=== PATIENT | female | born 1960 | race Caucasian/White ===

== ENCOUNTER 2021-12-11 14:44 | Observation (INO) ==
[2021-12-11 16:03] LABS: Basophils # (auto) 0.08 K/uL (0-0.2); Basophils % (auto) 0.7 %; Eosinophils # (auto) 0.36 K/uL (0-0.50); Eosinophils % (auto) 3.2 %; Hematocrit (blood only) 34.5 % (34.1-44.9); Hemoglobin 10.8 g/dl (12.0-16.0); Immature Granulocytes # (auto) 0.04 K/uL (0.00-0.02); Immature Granulocytes % (auto) 0.4 %; Lymphocytes # (auto) 2.72 K/uL (1.2-3.4); Mean Corpuscular Hemoglobin 27.7 pg (25.0-34.0); Mean Corpuscular Hgb Conc 31.3 g/dL (32.0-36.0); Mean Corpuscular Volume 88.5 fL (80.0-100.0); Mean Platelet Volume 10.7 fL (9.4-12.3); Monocytes # (auto) 0.78 K/uL (0.24-0.82); Monocytes % (auto) 6.9 %; Neutrophils # (auto) 7.33 K/uL (1.4-6.5); Neutrophils % (auto) 64.8 %; Platelet Count 198 K/uL (130-400); RDW Coefficient of Variation 13.8 % (11.5-14.5); RDW Standard Deviation 44.5 fL (36.4-46.3); White Blood Count 11.31 K/ul (4.8-10.8)
[2021-12-11 16:25] LABS: Albumin Globulin Ratio 1.3 (0.9-2); Albumin Level 3.5 gm/dl (3.4-5.0); BUN Creatinine Ratio 12.8 (10-20); Bilirubin,Total 0.3 mg/dl (0.2-1.0); Calcium 8.7 mg/dl (8.5-10.1); Creatinine Clr Calc Pharmacy 59.4 ml/min; Est GFR (African American) 75.9 ml/min; Est GFR (Non-African American) 65.5 ml/min; Globulin 2.7 gm/dl (2.5-4.0); Potassium 3.5 mmol/L (3.5-5.1); Total Protein 6.2 gm/dl (6.0-8.3)
--- NOTE | 2021-12-11 20:39 | Emergency Department Note ---
History of Present Illness General Chief complaint: Lethargic Stated complaint: lethargic Time Seen by Provider: 12/11/21 16:57 History of Present Illness Provider complaint: Postoperative bleeding Onset (ago): day(s) 1 Location: lower extremity and right Radiation: non-radiation Severity: mild Relieved By: + none Exacerbated By: + none Associated symptoms: no chest pain, no cough, no fever/chills, no headaches, no nausea/vomiting or no shortness of breath 61-year-old female presents emergency department for postoperative bleeding. Patient reports she had a skin graft done by Dr. Figueroa earlier today. She states when she got home she started noticing that the blood was going through her bandages so she came back to the emergency department.Patient reports feeling weak. No chest pain or difficulty breathing. Home Medications Medication Instructions Recorded Confirmed Type albuterol sulfate 90 mcg/actuation 2 puff inhalation 6XD PRN Wheezing 01/18/20 12/11/21 History aerosol inhaler betamethasone dipropionate 0.05 % 1 applic topical BID PRN right 01/18/20 12/11/21 History lotion hand, right foot rash gabapentin 100 mg capsule 200 mg PO TID 01/18/20 12/11/21 History glimepiride 1 mg tablet 0.5 mg PO QPM 01/18/20 12/11/21 History lisinopril 10 mg tablet 10 mg PO QAM 01/18/20 12/11/21 History sitagliptin 100 mg tablet (Januvia) 100 mg PO QAM 01/18/20 12/11/21 History atorvastatin 40 mg tablet 40 mg PO HS 06/06/20 12/11/21 History calcium carbonate 300 mg (750 mg) 300 mg PO BID PRN Heartburn 11/26/21 12/11/21 History chewable tablet (Tums) clopidogrel 75 mg tablet (Plavix) 75 mg PO QAM 11/26/21 12/11/21 History aspirin 81 mg chewable tablet 81 mg PO DAILY 12/11/21 12/11/21 History oxycodone-acetaminophen 5 mg-325 1 tab PO Q6H PRN pain #30 tabs 12/11/21 12/11/21 Rx mg tablet (Percocet) Allergies Allergy/AdvReac Type Severity Reaction Status Date / Time pineapple Allergy Intermediate purple Verified 12/11/21 09:12 spots on face Penicillins Allergy Unknown FEVER, Verified 12/11/21 09:12 ?- A CHILD Past Med/Surg History Medical History Bronchitis DUE TO ALLERGIES-INHALER USE INFREQUENTLY Carotid stenosis High-grade stenosis at the origin of the left external carotid artery. 50% stenosis right ICA, less than 50% stenosis left ICA. Diabetes mellitus, type 2 NIDDM Foot drop, right Heartburn tums prn Hyperlipidemia Hypertension Left lumbar radiculopathy On anticoagulant therapy Open wound right leg wound (superficial) being treated with home care nursing. no longer has wound vac was removed 11/11/21. Peripheral neuropathy Peripheral vascular disease s/p right femoral to above knee popliteal artery bypass, four compartment fasciotomies Right renal mass (06/07/13) benign (reason for nephrectomy) Sciatica LOWER BACK PAIN Surgical History H/O hand surgery X 3-RIGHT History of back surgery L4-L5-S1 (no hardware) History of colonoscopy History of intravascular stent placement x3 in the right femoral artery with Dr Figueroa at [facility] (all 3 have since been removed) History of nephrectomy, right History of strabismus surgery left eye as a child S/P epidural steroid injection S/P femoral-popliteal bypass surgery [place] [facility] [place], 4 compartment fasciotomy Family History Other No family history of adverse response to anesthesia Social History Smoking Status: Never smoker Cigarettes Per Day: 10 CIGS A DAY; Second Hand Exposure: Yes; Hx Alcohol Use: No Hx Substance Use: No Preferred Language: St Helen[place] Communication Ability: Effective Operations Vocational Instructor Required: No Beliefs That Will Affect Care: None Current Living Situation: Alone Feels Safe at Home: Yes Assistive Devices: Cane and Glasses Review of Systems A total of 10 systems reviewed and were otherwise negative Physical Exam Vital Signs Vital Signs - 24 hr 12/11/21 14:30 12/11/21 14:53 12/11/21 15:50 Temperature 36.6 C Temperature Source Oral Pulse Rate 71 Pulse Rate [Apical] 66 68 Pulse Rhythm [Apical] Regular Regular Pulse Strength [Apical] Normal Respiratory Rate 16 16 16 Respiratory Effort / Characteristics Non-Labored Spontaneous Non-Labored Spontaneous Respiratory Depth Normal Normal Respiratory Pattern Regular Blood Pressure 145/75 H Blood Pressure [Right Arm] 149/77 H 142/77 H Blood Pressure Mean 98 Blood Pressure Mean [Right Arm] 101 98 Blood Pressure Position [Right Arm] Lying Pulse Oximetry 98 97 97 Oxygen Delivery Method Room Air Sepsis Recent Fever Within 48 Hours No Sepsis New/Unexplained Change in Mental Status N/A Sepsis Action Taken by Nursing No Action Required 12/11/21 17:00 12/11/21 18:06 12/11/21 18:43 Temperature Temperature Source Pulse Rate Pulse Rate [Apical] 77 71 74 Pulse Rhythm [Apical] Regular Regular Pulse Strength [Apical] Normal Normal Respiratory Rate 20 18 16 Respiratory Effort / Characteristics Non-Labored Spontaneous Non-Labored Spontaneous Respiratory Depth Normal Normal Respiratory Pattern Blood Pressure Blood Pressure [Right Arm] 163/78 H 138/73 135/75 Blood Pressure Mean Blood Pressure Mean [Right Arm] 106 94 95 Blood Pressure Position [Right Arm] Pulse Oximetry 97 97 98 Oxygen Delivery Method Room Air Room Air Sepsis Recent Fever Within 48 Hours Sepsis New/Unexplained Change in Mental Status Sepsis Action Taken by Nursing 12/11/21 20:17 Temperature Temperature Source Pulse Rate Pulse Rate [Apical] 80 Pulse Rhythm [Apical] Pulse Strength [Apical] Respiratory Rate 18 Respiratory Effort / Characteristics Respiratory Depth Respiratory Pattern Blood Pressure Blood Pressure [Right Arm] 166/84 H Blood Pressure Mean Blood Pressure Mean [Right Arm] 111 Blood Pressure Position [Right Arm] Pulse Oximetry 97 Oxygen Delivery Method Room Air Sepsis Recent Fever Within 48 Hours Sepsis New/Unexplained Change in Mental Status Sepsis Action Taken by Nursing Physical Exam HENT: Exam performed. -Head: Normocephalic and atraumatic. -Right Ear: External ear normal. No mastoid tenderness. -Left Ear: External ear normal. No mastoid tenderness. -Mouth/Throat: The oropharynx is clear and moist. No trismus in the jaw. No dental abscesses or uvula swelling. No oropharyngeal exudate or tonsillar abscesses. EYES: Conjunctivae and EOM are normal. Pupils are equal, round, and reactive to light. Right eye exhibits no discharge. Left eye exhibits no discharge. No scleral icterus. NECK: Normal range of motion. Neck supple. No JVD present. No spinous process tenderness present. No carotid bruit present. No rigidity. No tracheal deviation and normal range of motion present. No Brudzinski's sign and no Kernig's sign noted. CV: Normal rate, regular rhythm, normal heart sounds and intact distal pulses. There is no peripheral edema. Palpable radial pulses bue. PULM/CHEST: Effort normal and breath sounds normal. No respiratory distress. No stridor. She has no wheezes. She has no rales. -Chest Wall: She exhibits no tenderness. ABD: The abdomen is soft. Bowel sounds are normal. She has no distension. No mass is present. There is no tenderness. There is no rebound, no guarding, no Deutsch's sign and no tenderness at McBurney's point. Rovsig negative MUSC/SKEL: Palpable DP pulses bilateral lower extremities. NEURO: She is alert and oriented to person, place, and time. She has normal strength. No cranial nerve deficit or sensory deficit. Coordination and gait normal. GCS eye subscore is 4. GCS verbal subscore is 5. GCS motor subscore is 6. Cerebellar tests wnl. SKIN: Bandaged right upper thigh surgical wound. Bandage was removed and there is venous oozing from the wound. No arterial bleeding. Course Course 1657: The patient was evaluated in room B5. A complete history and physical exam was performed Medical Decision Making Laboratory Data Result diagrams: 12/11/21 15:00 12/11/21 15:00 Lab Results 12/11/21 12/11/21 12/11/21 Range/Units 14:50 15:00 15:00 WBC 11.31 H (4.8-10.8) K/ul RBC 3.90 L (3.93-5.22) M/uL Hgb 10.8 L (12.0-16.0) g/dl Hct 34.5 (34.1-44.9) % MCV 88.5 (80.0-100.0) fL MCH 27.7 (25.0-34.0) pg MCHC 31.3 L (32.0-36.0) g/dL RDW Std Deviation 44.5 (36.4-46.3) fL RDW Coeff of Jesus Manuel 13.8 (11.5-14.5) % Plt Count 198 (130-400) K/uL MPV 10.7 (9.4-12.3) fL Immature Gran % (Auto) 0.4 % Neut % (Auto) 64.8 % Lymph % (Auto) 24.0 % [place] % (Auto) 6.9 % Eos % (Auto) 3.2 % Baso % (Auto) 0.7 % Neut # (Auto) 7.33 H (1.4-6.5) K/uL Lymph # (Auto) 2.72 (1.2-3.4) K/uL [place] # (Auto) 0.78 (0.24-0.82) K/uL Eos # (Auto) 0.36 (0-0.50) K/uL Baso # (Auto) 0.08 (0-0.2) K/uL Immature Gran # (Auto) 0.04 H (0.00-0.02) K/uL Sodium 137 (136-145) mmol/L Potassium 3.5 (3.5-5.1) mmol/L Chloride 103 (98-107) mmol/L Carbon Dioxide 28 (21-32) mmol/L Anion Gap 6 (3-11) BUN 12 (6-23) mg/dl Creatinine 0.94 (0.6-1.2) mg/dl Est Cr Clr Drug Dosing 59.4 ml/min Est GFR ( Amer) 75.9 ml/min Est GFR (Non-Af Amer) 65.5 ml/min BUN/Creatinine Ratio 12.8 (10-20) Glucose 140 H (70-99(Fasting)) mg/dl POC Glucose 142 H (70-99) mg/dl Calcium 8.7 (8.5-10.1) mg/dl Total Bilirubin 0.3 (0.2-1.0) mg/dl AST 15 (13-39) U/L ALT 15 (7-52) U/L Alkaline Phosphatase 81 (34-104) U/L Total Protein 6.2 (6.0-8.3) gm/dl Albumin 3.5 (3.4-5.0) gm/dl Globulin 2.7 (2.5-4.0) gm/dl Albumin/Globulin Ratio 1.3 (0.9-2) MDM Narrative Cardiac monitoring: An order was placed for continuous cardiac monitoring. The monitor shows a rate of 80 with sinus rhythm Quick clot gauze was applied over the patient's surgical wound and ABD as well a s Davis bandage was loosely placed over the area. After some time the Davis bandage and ABD were removed and there was no bleeding through the wound. The quick clot was slightly peeled back and then when the peeling off of the skin cause some mild venous pooling around the edges of the surgical wound however it is very minimal and thought to be due to the removing of the bandage that is causing the bleeding. Quick clot was quickly replaced with a new quick clot and it stopped the bleeding again. ABD and Davis bandage were applied. Patient's hemoglobin shows 10.8. Discussed case with Dr. Figueroa the patient surgeon and he states the patient be discharged with quick clot dressings and follow-up for appointment this week. Patient states she will call her brother to come pick her up. At the time of discharge the patient states she did not feel comfortable going home because she has many stairs in her house and is afraid she is cancer bleeding and feels too weak. The patient was offered evaluation for rehab at [facility] and states she would prefer to go there. Case management met with the patient are stating that the patient needs to be admitted overnight for PT OT eval and then can be placed there. Patient states she is agreeable to this. Discussed with Dr. Gordon will evaluate the patient. Impression & Plan Post-op bleeding Discharge Plan Visit Data Chief Complaint: Lethargic Stated Complaint: lethargic ED Provider: Jean Marie Sands Discharge Problem: Post-op bleeding Patient Disposition: Being Evaluated by Hospitalist Forms Stand Alone Forms: [facility], Virtual Emergency Department, Important Visit Information Prescriptions Prescriptions: No Action glimepiride 1 mg Tablet 0.5 mg PO QPM lisinopril 10 mg Tablet 10 mg PO QAM gabapentin 100 mg Capsule 200 mg PO TID albuterol sulfate 90 mcg/actuation Hfa Aerosol Inhaler 2 puff INHALATION 6XD PRN (Reason: Wheezing) betamethasone dipropionate 0.05 % Lotion 1 applic TOPICAL BID PRN (Reason: right hand, right foot rash) Januvia 100 mg Tablet 100 mg PO QAM atorvastatin 40 mg Tablet 40 mg PO HS clopidogrel [Plavix] 75 mg tablet 75 mg PO QAM calcium carbonate [Tums] 300 mg (750 mg) Tablet,Chewable 300 mg PO BID PRN (Reason: Heartburn) aspirin 81 mg Tablet,Chewable 81 mg PO DAILY oxycodone-acetaminophen [Percocet] 5-325 mg tablet 1 tab PO Q6H PRN (Reason: pain) Qty: 30 0RF Referrals Referrals: Etienne Sharma MD [Primary Care Provider] - Anselmo Figueroa MD [Physician] - (Call for appointment on Tuesday or )
--- NOTE | 2021-12-11 21:17 | History & Physical Report ---
Date of Service December 11, 2021 Assessment & Plan (1) Post-op bleeding: Plan: 61yo female with history of HTN, HLP, DM and PVD s/p skin grafting performed in clinic by Dr. Figueroa today. Patient presents with post-operative bleeding, concern regarding going home alone. She is afebrile, HD stable. Hgb=10.8. Wound visualized by ER staff - venous bleeding with some pooling. Resolved with placement of quick clot dressing x 2, ABD and Davis bandage. -Observation to medical -Monitor wound -Repeat CBC in AM -Vascular consultation appreciated -PT/OT evaluation appreciated (2) Hypertension: Plan: Chronic. Stable. Blood pressure presently 144/74 -Continue Lisinopril 10mg po qAM -Continue to monitor BP (3) Hyperlipidemia: Plan: Chronic. Stable -Continue Atorvastatin (4) Diabetes mellitus, type 2: Plan: Chronic. -Check HgbA1C -Lantus 5u BID -ISS (5) Peripheral vascular disease: Plan: Chronic. s/p skin grafting performed today -Continue ASA and Plavix -Continue Atorvastatin History of Present Illness Chief Complaint: post-operative bleeding, lethargy Primary Care Provider: MD Sierra Antonyrj East is 61yo female with history of DM, HTN, HLP and peripheral vascular disease. She has a left SFA stent. She was seen at [facility] [place] on [place]/02/21 with a cold right leg and had a right BARRER [place] TACKER to [place] pop bypass performed as well as 4 compartment fasciotomy. Medial compartment was closed 10/04/21 and the lateral compartment was managed with a wound vac. Her wound vac was removed last week and she has been dressing the wound at home. She had skin grafting of the lateral fasciotomy site performed by Dr. Figueroa in clinic today. The surgery was well tolerated with no complications identified. Patient was in the car at [facility] getting her prescriptions filled when she noted some increased bleeding at the graft site. Her son helped her hold pressure. They note that the bleeding soaked through the dressings and the DAVIS bandage. Patient reports she began to "feel funny" and weak like she was going to pass out. She denies chest pain, palpitations, cough, SOB or syncope. In the ER she is afebrile, HD stable. Wound was visualized by ER attending - venous bleeding present. The wound was dressed with quick clot gauze, an ABD and davis bandage. The quick clot was exchanged x 1. Bleeding controlled. Case discussed with Dr. Figueroa Patient feels very anxious about going home. She lives alone on the third floor. She is concerned about getting up the steps as well as if she starts bleeding again and feels faint. Allergies Allergy/AdvReac Type Severity Reaction Status Date / Time pineapple Allergy Intermediate purple Verified 12/11/21 09:12 spots on face Penicillins Allergy Unknown FEVER, Verified 12/11/21 09:12 ?- A CHILD Home Medications Medication Instructions Recorded Confirmed Type albuterol sulfate 90 mcg/actuation 2 puff inhalation 6XD PRN Wheezing 01/18/20 12/11/21 History aerosol inhaler betamethasone dipropionate 0.05 % 1 applic topical BID PRN right 01/18/20 12/11/21 History lotion hand, right foot rash gabapentin 100 mg capsule 200 mg PO TID 01/18/20 12/11/21 History glimepiride 1 mg tablet 0.5 mg PO QPM 01/18/20 12/11/21 History lisinopril 10 mg tablet 10 mg PO QAM 01/18/20 12/11/21 History sitagliptin 100 mg tablet (Januvia) 100 mg PO QAM 01/18/20 12/11/21 History atorvastatin 40 mg tablet 40 mg PO HS 06/06/20 12/11/21 History calcium carbonate 300 mg (750 mg) 300 mg PO BID PRN Heartburn 11/26/21 12/11/21 History chewable tablet (Tums) clopidogrel 75 mg tablet (Plavix) 75 mg PO QAM 11/26/21 12/11/21 History aspirin 81 mg chewable tablet 81 mg PO DAILY 12/11/21 12/11/21 History oxycodone-acetaminophen 5 mg-325 1 tab PO Q6H PRN pain #30 tabs 12/11/21 12/11/21 Rx mg tablet (Percocet) Past Med/Surg History Medical History (Updated 12/11/21 @ 22:51 by Shanda Gordon DO) Bronchitis DUE TO ALLERGIES-INHALER USE INFREQUENTLY Carotid stenosis High-grade stenosis at the origin of the left external carotid artery. 50% stenosis right ICA, less than 50% stenosis left ICA. Diabetes mellitus, type 2 NIDDM Foot drop, right Heartburn tums prn Hyperlipidemia Hypertension Left lumbar radiculopathy On anticoagulant therapy Open wound right leg wound (superficial) being treated with home care nursing. no longer has wound vac was removed 11/11/21. Peripheral neuropathy Peripheral vascular disease s/p right femoral to above knee popliteal artery bypass, four compartment fasciotomies Right renal mass (06/07/13) benign (reason for nephrectomy) Sciatica LOWER BACK PAIN Surgical History H/O hand surgery X 3-RIGHT History of back surgery L4-L5-S1 (no hardware) History of colonoscopy History of intravascular stent placement x3 in the right femoral artery with Dr Figueroa at [facility] (all 3 have since been removed) History of nephrectomy, right History of strabismus surgery left eye as a child S/P epidural steroid injection S/P femoral-popliteal bypass surgery an emergency surgery in 10/02/21 at [facility] [place] Right Leg, 4 compartment fasciotomy Family History Other No family history of adverse response to anesthesia Social History Smoking Status: Never smoker Cigarettes Per Day: 10 CIGS A DAY; Second Hand Exposure: Yes; Hx Alcohol Use: No Hx Substance Use: No Preferred Language: Sri Lankan Communication Ability: Effective Sales Consulting Director Required: No Beliefs That Will Affect Care: None Current Living Situation: Alone Feels Safe at Home: Yes Assistive Devices: Cane and Glasses Review of Systems Review of Systems: All systems reviewed & are unremarkable except as noted in HPI & below Physical Exam Physical Exam: General: patient resting comfortably, NAD, non-toxic in appearance, AA&O x 4 Skin: warm, dry, intact, no rashes or lesions HEENT: NC/AT, PERRL, EOMI, anicteric sclera, conjunctiva without injection, external ear normal to inspection and nontender, nares patent, moist mucus membranes, dentition intact, no oropharyngeal lesions, neck supple, trachea midline, no LAD, no thyromegaly, no JVD Heart: +S1/S2, regular, no m/r/g Lungs: equal air entry bilaterally, no rales/rhonchi/wheezes Abd: +BS, soft, NT/ND, no masses/organomegaly/ascites Ext: warm, 2+ pulses in UE/LE bilaterally, RLE with DAVIS-bandage in place, no bleeding or oozing noted Neuro: nonfocal, patient AA&O x 4, speech intact, no facial droop, moving all extremities on command with equal strength 5/5 Results & Data Results & Data ([facility]) Vital Signs (Past 12 Hours) Vital Signs Temp Pulse Pulse Resp BP BP Pulse Ox 12/11/21 20:17 80 18 166/84 H 97 12/11/21 18:43 74 16 135/75 98 12/11/21 18:06 71 18 138/73 97 12/11/21 17:00 77 20 163/78 H 97 12/11/21 15:50 68 16 142/77 H 97 12/11/21 14:53 36.6 C 66 16 149/77 H 97 12/11/21 14:30 71 16 145/75 H 98 O2 Del Method 12/11/21 20:17 Room Air 12/11/21 18:43 Room Air 12/11/21 18:06 12/11/21 17:00 Room Air 12/11/21 15:50 Room Air 12/11/21 14:53 12/11/21 14:30 Laboratory Results Laboratory Results WBC 11.31 K/ul (4.8-10.8) H 12/11/21 15:00 RBC 3.90 M/uL (3.93-5.22) L 12/11/21 15:00 Hgb 10.8 g/dl (12.0-16.0) L 12/11/21 15:00 Hct 34.5 % (34.1-44.9) 12/11/21 15:00 MCV 88.5 fL (80.0-100.0) 12/11/21 15:00 MCH 27.7 pg (25.0-34.0) 12/11/21 15:00 MCHC 31.3 g/dL (32.0-36.0) L 12/11/21 15:00 RDW Std Deviation 44.5 fL (36.4-46.3) 12/11/21 15:00 RDW Coeff of Jesus Manuel 13.8 % (11.5-14.5) 12/11/21 15:00 Plt Count 198 K/uL (130-400) 12/11/21 15:00 MPV 10.7 fL (9.4-12.3) 12/11/21 15:00 Immature Gran % (Auto) 0.4 % 12/11/21 15:00 Neut % (Auto) 64.8 % 12/11/21 15:00 Lymph % (Auto) 24.0 % 12/11/21 15:00 [place] % (Auto) 6.9 % 12/11/21 15:00 Eos % (Auto) 3.2 % 12/11/21 15:00 Baso % (Auto) 0.7 % 12/11/21 15:00 Neut # (Auto) 7.33 K/uL (1.4-6.5) H 12/11/21 15:00 Lymph # (Auto) 2.72 K/uL (1.2-3.4) 12/11/21 15:00 [place] # (Auto) 0.78 K/uL (0.24-0.82) 12/11/21 15:00 Eos # (Auto) 0.36 K/uL (0-0.50) 12/11/21 15:00 Baso # (Auto) 0.08 K/uL (0-0.2) 12/11/21 15:00 Immature Gran # (Auto) 0.04 K/uL (0.00-0.02) H 12/11/21 15:00 Sodium 137 mmol/L (136-145) 12/11/21 15:00 Potassium 3.5 mmol/L (3.5-5.1) 12/11/21 15:00 Chloride 103 mmol/L (98-107) 12/11/21 15:00 Carbon Dioxide 28 mmol/L (21-32) 12/11/21 15:00 Anion Gap 6 (3-11) 12/11/21 15:00 BUN 12 mg/dl (6-23) 12/11/21 15:00 Creatinine 0.94 mg/dl (0.6-1.2) 12/11/21 15:00 Est Cr Clr Drug Dosing 59.4 ml/min 12/11/21 15:00 Est GFR ( Amer) 75.9 ml/min 12/11/21 15:00 Est GFR (Non-Af Amer) 65.5 ml/min 12/11/21 15:00 BUN/Creatinine Ratio 12.8 (10-20) 12/11/21 15:00 Glucose 140 mg/dl (70-99(Fasting)) H 12/11/21 15:00 POC Glucose 142 mg/dl (70-99) H 12/11/21 14:50 Calcium 8.7 mg/dl (8.5-10.1) 12/11/21 15:00 Total Bilirubin 0.3 mg/dl (0.2-1.0) 12/11/21 15:00 AST 15 U/L (13-39) 12/11/21 15:00 ALT 15 U/L (7-52) 12/11/21 15:00 Alkaline Phosphatase 81 U/L (34-104) 12/11/21 15:00 Total Protein 6.2 gm/dl (6.0-8.3) 12/11/21 15:00 Albumin 3.5 gm/dl (3.4-5.0) 12/11/21 15:00 Globulin 2.7 gm/dl (2.5-4.0) 12/11/21 15:00 Albumin/Globulin Ratio 1.3 (0.9-2) 12/11/21 15:00 SARS-CoV-2, RNA, NAAT NEGATIVE (NEGATIVE) 12/11/21 21:30 Code Status & VTE Plan VTE Prophylaxis Plan VTE Prophylaxis will be ordered: No PG Care Time/CCT Total # of Minutes Spent Total Time Spent with Patient: Total time spent is greater than 50% in coordination of care (as documented) at patient's floor/unit and/or counseling patient: Coding Level of Care Code INT OBSERVATION CARE 70M LVL 3 Diagnoses Post-op bleeding L76.22 Procedure type: non-dermatologic Surgical complication system/body Area: skin Hypertension I10 Hyperlipidemia E78.5 Diabetes mellitus, type 2 E11.9 Peripheral vascular disease I73.9 (1) Post-op bleeding Procedure type: non-dermatologic Surgical complication system/body Area: skin Qualified Code(s): L76.22 - Postprocedural hemorrhage of skin and subcutaneous tissue following other procedure
[2021-12-11] MEDS ORDERED: ONDANSETRON INJ 2 MG/ML 2 ML VIAL IV PRN (23:06)
[2021-12-11] MEDS ORDERED: ALBUTEROL HFA 8 GM INHALER INH PRN (23:06)
[2021-12-11] MEDS ORDERED: GLUCOSE 10 TAB/TUBE PO PRN (23:06)
[2021-12-11] MEDS ORDERED: GLUCOSE 40% GEL 15 GM TUBE PO PRN (23:06)
[2021-12-11] MEDS ORDERED: CARBOHYDRATES FOR HYPOGLYCEMIA PO PRN (23:06)
[2021-12-11] MEDS ORDERED: DEXTROSE 50% 50 ML SYRINGE IV PRN (23:06)
[2021-12-11] MEDS ORDERED: BETAMETHASONE DIPROPIONATE 0.05% TOP PRN (23:06)
[2021-12-11] MEDS ORDERED: GLUCAGON FOR INJ 1 MG VIAL SQ PRN (23:06)
[2021-12-12] MEDS ORDERED: BETAMETHASONE VAL 0.1% CR 15 GM EXT PRN (00:44)
[2021-12-12] MEDS: ACETAMINOPHEN 325 MG TAB PO PRN ×2 (06:13→16:50)
[2021-12-12 06:50] LABS: Hematocrit (blood only) 31.4 % (34.1-44.9); Hemoglobin 9.9 g/dl (12.0-16.0); Mean Corpuscular Hemoglobin 27.4 pg (25.0-34.0); Mean Corpuscular Hgb Conc 31.5 g/dL (32.0-36.0); Mean Platelet Volume 10.3 fL (9.4-12.3); Platelet Count 185 K/uL (130-400); RDW Coefficient of Variation 13.9 % (11.5-14.5); Red Blood Count 3.61 M/uL (3.93-5.22); White Blood Count 9.29 K/ul (4.8-10.8)
[2021-12-12 07:57] LABS: Estimated Average Glucose 120 mg/dl; Hemoglobin A1C 5.8 % (4.5-5.6)
[2021-12-12] MEDS: CLOPIDOGREL BISULFATE 75 MG TAB PO SCH (08:50)
[2021-12-12] MEDS ORDERED: ASPIRIN 81 MG CHEW PO SCH (09:00)
[2021-12-12] MEDS: INSULIN ASPART PER UNIT SC SCH ×4 (09:17→21:00)
[2021-12-12] MEDS: LANTUS PER UNIT CHARGE SQ SCH ×2 (09:17→21:00)
--- NOTE | 2021-12-12 17:38 | Hospitalist Progress Note ---
Date of Service December 12, 2021 Assessment & Plan (1) Post-op bleeding: Plan: 61yo female with history of HTN, HLP, DM and PVD s/p skin grafting performed in clinic by Dr. Figueroa today. Patient presents with post-operative bleeding, concern regarding going home alone. She is afebrile, HD stable. Hgb=10.8. Wound visualized by ER staff - venous bleeding with some pooling. Resolved with placement of quick clot dressing x 2, ABD and Davis bandage. -Observation to medical -Monitor wound -hemoglobin down trending. -will repat in AM. -Vascular consultation appreciated -PT/OT evaluation appreciated (2) Hypertension: Plan: Chronic. Stable. Blood pressure presently 144/74 -Continue Lisinopril 10mg po qAM -Continue to monitor BP (3) Hyperlipidemia: Plan: Chronic. Stable -Continue Atorvastatin (4) Diabetes mellitus, type 2: Plan: Chronic. -Check HgbA1C -Lantus 5u BID -ISS (5) Peripheral vascular disease: Plan: Chronic. s/p skin grafting performed today -Continue ASA and Plavix -Continue Atorvastatin Admission and Anticipated Discharge Date Admission Date: December 11, 2021 Subjective 61 yo female reports feeling well. She no longer has fatigue. Review of Systems Review of Systems: All systems reviewed & are unremarkable except as noted in HPI & below Physical Exam Physical Exam: General: patient resting comfortably, NAD, non-toxic in appearance, AA&O x 4 Skin: warm, dry, intact, no rashes or lesions HEENT: NC/AT, PERRL, EOMI, anicteric sclera, conjunctiva without injection, external ear normal to inspection and nontender, nares patent, moist mucus membranes, dentition intact, no oropharyngeal lesions, neck supple, trachea midline, no LAD, no thyromegaly, no JVD Heart: +S1/S2, regular, no m/r/g Lungs: equal air entry bilaterally, no rales/rhonchi/wheezes Abd: +BS, soft, NT/ND, no masses/organomegaly/ascites Ext: warm, 2+ pulses in UE/LE bilaterally, RLE with DAVIS-bandage in place, no bleeding or oozing noted Neuro: nonfocal, patient AA&O x 4, speech intact, no facial droop, moving all extremities on command with equal strength 5/5 Results & Data Results & Data ([facility]) Vital Signs (Past 12 Hours) Vital Signs Temp Pulse Resp BP Pulse Ox O2 Del Method 12/12/21 14:42 36.8 C 16 146/71 H 98 Room Air 12/12/21 07:01 36.6 C 66 16 135/70 96 Room Air PG Care Time/CCT Total # of Minutes Spent Total Time Spent with Patient: Total time spent is greater than 50% in coordination of care (as documented) at patient's floor/unit and/or counseling patient: Coding Level of Care Code 87343 Subseq Obs Care Lvl 2 Diagnoses Post-op bleeding L76.22 Procedure type: non-dermatologic Surgical complication system/body Area: skin Hypertension I10 Hyperlipidemia E78.5 Diabetes mellitus, type 2 E11.9 Peripheral vascular disease I73.9 Time Spent (min) 25 (1) Post-op bleeding Procedure type: non-dermatologic Surgical complication system/body Area: skin Qualified Code(s): L76.22 - Postprocedural hemorrhage of skin and subcutaneous tissue following other procedure
[2021-12-12 19:20] LABS: Hematocrit (blood only) 31.5 % (34.1-44.9); Hemoglobin 9.8 g/dl (12.0-16.0)
[2021-12-12] MEDS: ATORVASTATIN 40 MG TAB PO SCH (21:01)
[2021-12-13 07:45] LABS: Hematocrit (blood only) 31.1 % (34.1-44.9); Hemoglobin 10.2 g/dl (12.0-16.0); Mean Corpuscular Hemoglobin 27.9 pg (25.0-34.0); Mean Corpuscular Hgb Conc 32.8 g/dL (32.0-36.0); Mean Platelet Volume 10.4 fL (9.4-12.3); Platelet Count 201 K/uL (130-400); RDW Coefficient of Variation 13.8 % (11.5-14.5); RDW Standard Deviation 43.2 fL (36.4-46.3); Red Blood Count 3.66 M/uL (3.93-5.22); White Blood Count 8.91 K/ul (4.8-10.8)
[2021-12-13 08:11] LABS: BUN Creatinine Ratio 18.1 (10-20); Calcium 8.9 mg/dl (8.5-10.1); Creatinine Clr Calc Pharmacy 77.3 ml/min; Est GFR (African American) 104.8 ml/min; Est GFR (Non-African American) 90.4 ml/min; Potassium 3.8 mmol/L (3.5-5.1)
[2021-12-13] MEDS: CLOPIDOGREL BISULFATE 75 MG TAB PO SCH (08:58)
[2021-12-13] MEDS: INSULIN ASPART PER UNIT SC SCH ×4 (09:05→20:30)
[2021-12-13] MEDS: LANTUS PER UNIT CHARGE SQ SCH ×2 (09:06→20:46)
[2021-12-13] MEDS: ACETAMINOPHEN 325 MG TAB PO PRN ×2 (10:04→22:14)
[2021-12-13] MEDS: ATORVASTATIN 40 MG TAB PO SCH (20:46)
--- NOTE | 2021-12-13 22:22 | Hospitalist Progress Note ---
Date of Service December 13, 2021 Assessment & Plan (1) Post-op bleeding: Plan: 61yo female with history of HTN, HLP, DM and PVD s/p skin grafting performed in clinic by Dr. Figueroa today. Patient presents with post-operative bleeding, concern regarding going home alone. She is afebrile, HD stable. Hgb=10.8. Wound visualized by ER staff - venous bleeding with some pooling. Resolved with placement of quick clot dressing x 2, ABD and Davis bandage. -Observation to medical -Monitor wound -hemoglobin down trending. -dressing changed.quick clot pad removed. -Vascular consultation appreciated -PT/OT evaluation appreciated (2) Hypertension: Plan: Chronic. Stable. Blood pressure presently 144/74 -Continue Lisinopril 10mg po qAM -Continue to monitor BP (3) Hyperlipidemia: Plan: Chronic. Stable -Continue Atorvastatin (4) Diabetes mellitus, type 2: Plan: Chronic. -Check HgbA1C -Lantus 5u BID -ISS (5) Peripheral vascular disease: Plan: Chronic. s/p skin grafting performed today -Continue ASA and Plavix -Continue Atorvastatin Admission and Anticipated Discharge Date Admission Date: December 11, 2021 Subjective Patient reports no new symptoms. Patient had BM. Review of Systems Review of Systems: All systems reviewed & are unremarkable except as noted in HPI & below Physical Exam Physical Exam: General: patient resting comfortably, NAD, non-toxic in appearance, AA&O x 4 Skin: warm, dry, intact, no rashes or lesions HEENT: NC/AT, PERRL, EOMI, anicteric sclera, conjunctiva without injection, external ear normal to inspection and nontender, nares patent, moist mucus membranes, dentition intact, no oropharyngeal lesions, neck supple, trachea midline, no LAD, no thyromegaly, no JVD Heart: +S1/S2, regular, no m/r/g Lungs: equal air entry bilaterally, no rales/rhonchi/wheezes Abd: +BS, soft, NT/ND, no masses/organomegaly/ascites Ext: warm, 2+ pulses in UE/LE bilaterally, RLE with DAVIS-bandage in place, no bleeding or oozing noted Neuro: nonfocal, patient AA&O x 4, speech intact, no facial droop, moving all extremities on command with equal strength 5/5 Results & Data Results & Data ([facility]) Vital Signs (Past 12 Hours) Vital Signs Temp Pulse Resp BP Pulse Ox O2 Del Method 12/13/21 15:21 36.7 C 75 16 134/73 97 Room Air PG Care Time/CCT Total # of Minutes Spent Total Time Spent with Patient: Total time spent is greater than 50% in coordination of care (as documented) at patient's floor/unit and/or counseling patient: Coding Level of Care Code 92796 Subseq Hosp Care Lvl 2 Diagnoses Post-op bleeding L76.22 Procedure type: non-dermatologic Surgical complication system/body Area: skin Hypertension I10 Hyperlipidemia E78.5 Diabetes mellitus, type 2 E11.9 Peripheral vascular disease I73.9 (1) Post-op bleeding Procedure type: non-dermatologic Surgical complication system/body Area: skin Qualified Code(s): L76.22 - Postprocedural hemorrhage of skin and subcutaneous tissue following other procedure
[2021-12-14 07:34] LABS: Hematocrit (blood only) 31.7 % (34.1-44.9); Hemoglobin 10.1 g/dl (12.0-16.0); Mean Corpuscular Hemoglobin 27.4 pg (25.0-34.0); Mean Corpuscular Hgb Conc 31.9 g/dL (32.0-36.0); Mean Corpuscular Volume 86.1 fL (80.0-100.0); Mean Platelet Volume 10.7 fL (9.4-12.3); Platelet Count 209 K/uL (130-400); RDW Standard Deviation 43.8 fL (36.4-46.3); Red Blood Count 3.68 M/uL (3.93-5.22); White Blood Count 9.76 K/ul (4.8-10.8)
[2021-12-14 08:03] LABS: BUN Creatinine Ratio 19.7 (10-20); Calcium 8.9 mg/dl (8.5-10.1); Creatinine Clr Calc Pharmacy 78.4 ml/min; Est GFR (African American) 106.5 ml/min; Est GFR (Non-African American) 91.9 ml/min; Potassium 3.6 mmol/L (3.5-5.1)
[2021-12-14] MEDS: CLOPIDOGREL BISULFATE 75 MG TAB PO SCH (08:32)
[2021-12-14] MEDS: INSULIN ASPART PER UNIT SC SCH ×4 (08:32→19:58)
[2021-12-14] MEDS: LANTUS PER UNIT CHARGE SQ SCH ×2 (08:45→19:58)
[2021-12-14] MEDS: ACETAMINOPHEN 325 MG TAB PO PRN ×2 (09:07→21:56)
--- NOTE | 2021-12-14 09:28 | Consultation ---
Date of Consultation December 14, 2021 Assessment & Plan (1) Status post skin graft: Pt doing well s/p RLE STSG. [place] site without further bleeding noted. Advise DO NOT REMOVE telfa dressing adjacent to skin. May cover with kerlix and outer kerlix may be changed daily. Lower leg dressing NOT TO BE REMOVED until reeval by Dr Figueroa or myself. Will reeval in office later this week. History of Present Illness Reason for Consultation: bleeding RLE Attending Physician: Deejay Maddox History of Present Illness 61 yo f with hx of RLE femoral to popliteal artery bypass graft and 4 compartment fasciotomies in 10/23, now 3 days s/p RLE STSG to lateral fasciotomy site with R thigh harvest, seen in consultation today after she returned to [facility] d/t bleeding from harvest site. 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 She was concerned, so came to [facility] for eval. Dressings have been removed and replaced multiple times since admission, without further bleeding. Pt is on plavix d/t vascular issues. Pt denies CHANG, fever, chest pain, SOB, abd pain, n/V, rest pain, claudication, other complaints. Allergies Allergy/AdvReac Type Severity Reaction Status Date / Time pineapple Allergy Intermediate purple Verified 12/11/21 09:12 spots on face Penicillins Allergy Unknown FEVER, Verified 12/11/21 09:12 ?- A CHILD Home Medications Medication Instructions Recorded Confirmed Type albuterol sulfate 90 mcg/actuation 2 puff inhalation 6XD PRN Wheezing 01/18/20 12/11/21 History aerosol inhaler betamethasone dipropionate 0.05 % 1 applic topical BID PRN right 01/18/20 12/11/21 History lotion hand, right foot rash gabapentin 100 mg capsule 200 mg PO TID 01/18/20 12/11/21 History glimepiride 1 mg tablet 0.5 mg PO QPM 01/18/20 12/11/21 History lisinopril 10 mg tablet 10 mg PO QAM 01/18/20 12/11/21 History sitagliptin 100 mg tablet (Januvia) 100 mg PO QAM 01/18/20 12/11/21 History atorvastatin 40 mg tablet 40 mg PO HS 06/06/20 12/11/21 History calcium carbonate 300 mg (750 mg) 300 mg PO BID PRN Heartburn 11/26/21 12/11/21 History chewable tablet (Tums) clopidogrel 75 mg tablet (Plavix) 75 mg PO QAM 11/26/21 12/11/21 History aspirin 81 mg chewable tablet 81 mg PO DAILY 12/11/21 12/11/21 History oxycodone-acetaminophen 5 mg-325 1 tab PO Q6H PRN pain #30 tabs 12/11/21 12/11/21 Rx mg tablet (Percocet) Patient History Medical History Bronchitis DUE TO ALLERGIES-INHALER USE INFREQUENTLY Carotid stenosis High-grade stenosis at the origin of the left external carotid artery. 50% stenosis right ICA, less than 50% stenosis left ICA. Diabetes mellitus, type 2 NIDDM Foot drop, right Heartburn tums prn Hyperlipidemia Hypertension Left lumbar radiculopathy On anticoagulant therapy Open wound right leg wound (superficial) being treated with home care nursing. no longer has wound vac was removed 11/11/21. Peripheral neuropathy Peripheral vascular disease s/p right femoral to above knee popliteal artery bypass, four compartment fasciotomies Right renal mass (06/07/13) benign (reason for nephrectomy) Sciatica LOWER BACK PAIN Surgical History (Updated 12/14/21 @ 09:25 by Zehra Alcantar PA-C) H/O hand surgery X 3-RIGHT History of back surgery L4-L5-S1 (no hardware) History of colonoscopy History of intravascular stent placement x3 in the right femoral artery with Dr Figueroa at [facility] History of nephrectomy, right History of strabismus surgery left eye as a child S/P epidural steroid injection S/P femoral-popliteal bypass surgery an emergency surgery in 10/02/21 at [facility] [place] Right Leg, 4 compartment fasciotomy Status post skin graft Family History Other No family history of adverse response to anesthesia Social History Smoking Status: Former smoker Cigarettes Per Day: 10 CIGS A DAY; Smoking End Date: November; Second Hand Exposure: Yes; Hx Alcohol Use: No Hx Substance Use: No Preferred Language: Kyrgyz Communication Ability: Effective Doper Operator Required: No Beliefs That Will Affect Care: None Current Living Situation: Alone Feels Safe at Home: Yes Safety Concerns: Feels Safe At This Time Assistive Devices: Cane and Glasses Review of Systems Review of Systems: All systems reviewed & are unremarkable except as noted in HPI & below Physical Exam Constitutional: WD/WN, vitals as above cooperative; not in distress Neck: trachea midline Respiratory: Auscultation: lungs clear to auscultation bilaterally and + diminished lung sounds Cardiovascular: Rate/Rhythm: regular rate and regular rhythm Vessels: femoral pulses present, dorsalis pedis pulses present and radial pulses present Extremities: normal capillary refill; no edema Gastrointestinal (Abdomen): Inspection/Auscultation: abdomen normal to inspection and normal bowel sounds Percussion/Palpation: abdomen soft; abdomen nontender Musculoskeletal: no cyanosis or clubbing, extremities motor strength 5/5 Skin: R thigh donor site dressings without active bleeding noted. lower leg dressings not removed. Neurologic: moves all extremities and awake; no focal motor deficits and not confused Psychiatric: A+Ox3, euthymic affect Results & Data ([facility]) Vital Signs (Past 12 Hours) Vital Signs Temp Pulse Resp BP Pulse Ox O2 Del Method 12/14/21 07:11 36.7 C 71 16 148/73 H 99 Room Air 12/13/21 22:24 36.9 C 81 18 148/76 H 98 Room Air
[2021-12-14] MEDS: ATORVASTATIN 40 MG TAB PO SCH (19:59)
--- NOTE | 2021-12-14 22:10 | Hospitalist Progress Note ---
Date of Service December 14, 2021 Assessment & Plan (1) Post-op bleeding: Plan: 61yo female with history of HTN, HLP, DM and PVD s/p skin grafting performed in clinic by Dr. Figureoa today. Patient presents with post-operative bleeding, concern regarding going home alone. She is afebrile, HD stable. Hgb=10.8. Wound visualized by ER staff - venous bleeding with some pooling. Resolved with placement of quick clot dressing x 2, ABD and Davis bandage. -Observation to medical -Monitor wound -hemoglobin down trending. -dressing changed.quick clot pad removed. -Vascular consultation appreciated -PT/OT evaluation appreciated awaiting rehab. (2) Hypertension: Plan: Chronic. Stable. Blood pressure presently 144/74 -Continue Lisinopril 10mg po qAM -Continue to monitor BP (3) Hyperlipidemia: Plan: Chronic. Stable -Continue Atorvastatin (4) Diabetes mellitus, type 2: Plan: Chronic. -Check HgbA1C -Lantus 5u BID -ISS (5) Peripheral vascular disease: Plan: Chronic. s/p skin grafting performed today -Continue ASA and Plavix -Continue Atorvastatin Admission and Anticipated Discharge Date Admission Date: December 13, 2021 Subjective 61 yo female reports no new bleeding. Review of Systems Review of Systems: All systems reviewed & are unremarkable except as noted in HPI & below Physical Exam Physical Exam: General: patient resting comfortably, NAD, non-toxic in appearance, AA&O x 4 Skin: warm, dry, intact, no rashes or lesions HEENT: NC/AT, PERRL, EOMI, anicteric sclera, conjunctiva without injection, external ear normal to inspection and nontender, nares patent, moist mucus membranes, dentition intact, no oropharyngeal lesions, neck supple, trachea midline, no LAD, no thyromegaly, no JVD Heart: +S1/S2, regular, no m/r/g Lungs: equal air entry bilaterally, no rales/rhonchi/wheezes Abd: +BS, soft, NT/ND, no masses/organomegaly/ascites Ext: warm, 2+ pulses in UE/LE bilaterally, RLE with DAVIS-bandage in place, no bleeding or oozing noted Neuro: nonfocal, patient AA&O x 4, speech intact, no facial droop, moving all extremities on command with equal strength 5/5 Results & Data Results & Data ([facility]) Vital Signs (Past 12 Hours) Vital Signs Temp Pulse Resp BP Pulse Ox O2 Del Method 12/14/21 21:51 36.7 C 85 18 138/75 98 Room Air 12/14/21 15:15 36.8 C 76 16 152/76 H 98 Room Air PG Care Time/CCT Total # of Minutes Spent Total Time Spent with Patient: Total time spent is greater than 50% in coordination of care (as documented) at patient's floor/unit and/or counseling patient: Coding Level of Care Code 40912 Subseq Hosp Care Lvl 2 Diagnoses Post-op bleeding L76.22 Procedure type: non-dermatologic Surgical complication system/body Area: skin Hypertension I10 Hyperlipidemia E78.5 Diabetes mellitus, type 2 E11.9 Peripheral vascular disease I73.9 Time Spent (min) 25 (1) Post-op bleeding Procedure type: non-dermatologic Surgical complication system/body Area: skin Qualified Code(s): L76.22 - Postprocedural hemorrhage of skin and subcutaneous tissue following other procedure
[2021-12-15] MEDS: INSULIN ASPART PER UNIT SC SCH ×4 (08:47→20:51)
[2021-12-15] MEDS: CLOPIDOGREL BISULFATE 75 MG TAB PO SCH (08:48)
[2021-12-15] MEDS: LANTUS PER UNIT CHARGE SQ SCH ×2 (08:49→21:33)
[2021-12-15] MEDS: ACETAMINOPHEN 325 MG TAB PO PRN ×2 (08:55→23:11)
[2021-12-15] MEDS: ATORVASTATIN 40 MG TAB PO SCH (21:33)
--- NOTE | 2021-12-15 23:05 | Hospitalist Progress Note ---
Date of Service December 15, 2021 Assessment & Plan (1) Post-op bleeding: Plan: 61yo female with history of HTN, HLP, DM and PVD s/p skin grafting performed in clinic by Dr. Figueroa today. Patient presents with post-operative bleeding, concern regarding going home alone. She is afebrile, HD stable. Hgb=10.8. Wound visualized by ER staff - venous bleeding with some pooling. Resolved with placement of quick clot dressing x 2, ABD and Davis bandage. -Observation to medical -Monitor wound -hemoglobin down trending. -dressing changed.quick clot pad removed. -Vascular consultation appreciated -PT/OT evaluation appreciated awaiting rehab. (2) Hypertension: Plan: Chronic. Stable. Blood pressure presently 144/74 -Continue Lisinopril 10mg po qAM -Continue to monitor BP (3) Hyperlipidemia: Plan: Chronic. Stable -Continue Atorvastatin (4) Diabetes mellitus, type 2: Plan: Chronic. -Check HgbA1C -Lantus 5u BID -ISS (5) Peripheral vascular disease: Plan: Chronic. s/p skin grafting performed today -Continue ASA and Plavix -Continue Atorvastatin Admission and Anticipated Discharge Date Admission Date: December 13, 2021 Subjective feeling well. Review of Systems Review of Systems: All systems reviewed & are unremarkable except as noted in HPI & below Physical Exam Physical Exam: General: patient resting comfortably, NAD, non-toxic in appearance, AA&O x 4 Skin: warm, dry, intact, no rashes or lesions HEENT: NC/AT, PERRL, EOMI, anicteric sclera, conjunctiva without injection, e xternal ear normal to inspection and nontender, nares patent, moist mucus membranes, dentition intact, no oropharyngeal lesions, neck supple, trachea midline, no LAD, no thyromegaly, no JVD Heart: +S1/S2, regular, no m/r/g Lungs: equal air entry bilaterally, no rales/rhonchi/wheezes Abd: +BS, soft, NT/ND, no masses/organomegaly/ascites Ext: warm, 2+ pulses in UE/LE bilaterally, RLE with DAVIS-bandage in place, no bleeding or oozing noted Neuro: nonfocal, patient AA&O x 4, speech intact, no facial droop, moving all extremities on command with equal strength 5/5 Results & Data Results & Data ([facility]) Vital Signs (Past 12 Hours) Vital Signs Temp Pulse Resp BP Pulse Ox O2 Del Method 12/15/21 22:15 36.8 C 83 18 158/74 H 98 Room Air 12/15/21 16:00 37.0 C 79 16 137/77 99 Room Air PG Care Time/CCT Total # of Minutes Spent Total Time Spent with Patient: Total time spent is greater than 50% in coordination of care (as documented) at patient's floor/unit and/or counseling patient: Coding Level of Care Code 70165 Subseq Hosp Care Lvl 1 Diagnoses Post-op bleeding L76.22 Procedure type: non-dermatologic Surgical complication system/body Area: skin Hypertension I10 Hyperlipidemia E78.5 Diabetes mellitus, type 2 E11.9 Peripheral vascular disease I73.9 (1) Post-op bleeding Procedure type: non-dermatologic Surgical complication system/body Area: skin Qualified Code(s): L76.22 - Postprocedural hemorrhage of skin and subcutaneous tissue following other procedure
[2021-12-16] MEDS: INSULIN ASPART PER UNIT SC SCH ×4 (09:02→20:51)
[2021-12-16] MEDS: LANTUS PER UNIT CHARGE SQ SCH ×2 (09:03→21:00)
[2021-12-16] MEDS: CLOPIDOGREL BISULFATE 75 MG TAB PO SCH (09:43)
--- NOTE | 2021-12-16 14:16 | Surgery Progress Note ---
Date of Service December 16, 2021 Assessment & Plan (1) Status post skin graft: Plan: Pt doing well s/p RLE STSG. [place] site without further bleeding noted. Advise DO NOT REMOVE telfa dressing adjacent to skin. May cover with kerlix and outer kerlix may be changed daily. Lower leg OUTER DRESSING ONLY to be changed daily. DO NOT REMOVE OR MANIPULATE BLACK FOAM. Will see in office next week. Admission and Anticipated Discharge Date Admission Date: December 13, 2021 Subjective 61 yo f 1 wk s/p RLE STSG, seen in f/u today. Pt without any complaints. States is going to rehab soon. Review of Systems Review of Systems: All systems reviewed & are unremarkable except as noted in HPI & below Physical Exam Constitutional: WD/WN, vitals as above cooperative; not in distress Cardiovascular: Vessels: dorsalis pedis pulses present Skin: R thigh harvest site dressing in place. No bleeding. R lower leg STSG, black foam in place. No bleeding, draiange, or erythema. Results & Data ([facility]) Vital Signs (Past 12 Hours) Vital Signs Temp Pulse Resp BP Pulse Ox O2 Del Method 12/16/21 07:43 37.0 C 76 16 135/77 98 Room Air
[2021-12-16] MEDS: ATORVASTATIN 40 MG TAB PO SCH (20:51)
--- NOTE | 2021-12-16 21:09 | Hospitalist Progress Note ---
Date of Service December 16, 2021 Assessment & Plan (1) Post-op bleeding: Plan: Acute blood loss anemia 61yo female with history of HTN, HLP, DM and PVD s/p skin grafting performed in clinic by Dr. Figueroa today. Patient presents with post-operative bleeding, concern regarding going home alone. She is afebrile, HD stable. Hgb=10.8. Wound visualized by ER staff - venous bleeding with some pooling. Resolved with placement of quick clot dressing x 2, ABD and Davis bandage. -Observation to medical -Monitor wound -hemoglobin down trending. -dressing changed.quick clot pad removed. -Vascular consultation appreciated -Hemoglobin stable and did not show any significant decrease since her admission. -PT/OT evaluation appreciated awaiting rehab. Auth hopefully on 12/16 (2) Hypertension: Plan: Chronic. Stable. Blood pressure presently 144/74 -Continue Lisinopril 10mg po qAM -Continue to monitor BP (3) Hyperlipidemia: Plan: Chronic. Stable -Continue Atorvastatin (4) Diabetes mellitus, type 2: Plan: Chronic. -Check HgbA1C -Lantus 5u BID -ISS (5) Peripheral vascular disease: Plan: Chronic. s/p skin grafting performed today -Continue ASA and Plavix -Continue Atorvastatin Admission and Anticipated Discharge Date Admission Date: December 13, 2021 Subjective No new complaints. Review of Systems Review of Systems: All systems reviewed & are unremarkable except as noted in HPI & below Physical Exam Physical Exam: General: patient resting comfortably, NAD, non-toxic in appearance, AA&O x 4 Results & Data Results & Data ([facility]) Vital Signs (Past 12 Hours) Vital Signs Temp Pulse Resp BP Pulse Ox O2 Del Method 12/16/21 15:02 37.1 C 88 16 135/72 97 Room Air PG Care Time/CCT Total # of Minutes Spent Total Time Spent with Patient: Total time spent is greater than 50% in coordination of care (as documented) at patient's floor/unit and/or counseling patient: Coding Level of Care Code 53140 Subseq Hosp Care Lvl 1 Diagnoses Post-op bleeding L76.22 Procedure type: non-dermatologic Surgical complication system/body Area: skin Hypertension I10 Hyperlipidemia E78.5 Diabetes mellitus, type 2 E11.9 Peripheral vascular disease I73.9 (1) Post-op bleeding Procedure type: non-dermatologic Surgical complication system/body Area: skin Qualified Code(s): L76.22 - Postprocedural hemorrhage of skin and subcutaneous tissue following other procedure
[2021-12-17] MEDS: INSULIN ASPART PER UNIT SC SCH ×2 (09:35→12:46)
[2021-12-17] MEDS: CLOPIDOGREL BISULFATE 75 MG TAB PO SCH (09:35)
[2021-12-17] MEDS: LANTUS PER UNIT CHARGE SQ SCH (09:37)
[2021-12-17] MEDS: ACETAMINOPHEN 325 MG TAB PO PRN (09:38)
--- NOTE | 2021-12-17 16:27 | Discharge Summary ---
Date of Service December 17, 2021 Admission HPI Per Admitting Provider Melissa East is 61yo female with history of DM, HTN, HLP and peripheral vascular disease. She has a left SFA stent. [place] [facility] [place] with a cold right leg and had a right TANK RIVETER to AK pop bypass performed as well as 4 compartment fasciotomy. Medial compartment was closed 10/04/21 and the lateral compartment was managed with a wound vac. Her wound vac was removed last week and she has been dressing the wound at home. She had skin grafting of the lateral fasciotomy site performed by Dr. Figueroa in clinic today. The surgery was well tolerated with no complications identified. Patient was in the car at [employer] getting her prescriptions filled when she noted some increased bleeding at the graft site. Her son helped her hold pressure. They note that the bleeding soaked through the dressings and the ARMANDO bandage. Patient reports she began to "feel funny" and weak like she was going to pass out. She denies chest pain, palpitations, cough, SOB or syncope. In the ER she is afebrile, HD stable. Wound was visualized by ER attending - venous bleeding present. The wound was dressed with quick clot gauze, an ABD and armando bandage. The quick clot was exchanged x 1. Bleeding controlled. Case discussed with Dr. Figueroa Patient feels very anxious about going home. She lives alone on the third floor. She is concerned about getting up the steps as well as if she starts bleeding again and feels faint. Principal Diagnosis Postoperative bleeding Discharge Exam Constitutional WD/WN, vitals as above Respiratory normal respiratory effort, lungs clear to auscultation Cardiovascular RRR, no murmur, no edema Gastrointestinal (Abdomen) normal bowel sounds, soft, nontender, no hepatosplenomegaly Psychiatric A+Ox3, euthymic affect Discharge Data Allergies Allergy/AdvReac Type Severity Reaction Status Date / Time pineapple Allergy Intermediate purple Verified 12/11/21 09:12 spots on face Penicillins Allergy Unknown FEVER, Verified 12/11/21 09:12 ?- A CHILD Consultations 12/11/21 21:12 ED Decision to Admit Stat 12/11/21 23:06 Consult Vascular Surgery Routine Hospital Course (1) Post-op bleeding: Melissa East is a 61-year-old female who presents to the ER with acute blood loss anemia following skin graft with increased bleeding at the graft site the same day after procedure. She felt presyncopal and therefore came to the ER. Her anemia has been stable here ranging from 9.8-10.8. Hemoglobin 10.1 g/dL on discharge. She did not require any blood transfusions. Please see additional vascular surgery wound care management as below. She should follow- up with vascular surgery in the clinic next week - appointment to be arranged. Recommend she also follows up with her primary care physician given HbA1c of 5.8 as possibly she does not need her glimepiride moving forward. (2) Hypertension: (3) Hyperlipidemia: (4) Diabetes mellitus, type 2: (5) Peripheral vascular disease: Total Time Total Time Spent Total Time Spent (In Minutes): 25 Discharge Plan Discharge Items Patient Disposition: Transfer Inpatient Rehab Fac Reason For Visit: BLEEDING Discharge Diagnosis: Postoperative bleeding Activity: Resume your previous activity Non-emergency contact: Surgeon Call non-emergency contact if: you have any medication questions and your symptoms worsen Follow-up/Referrals: Etienne Sharma MD [Primary Care Provider] - (Routine diabetes follow-up) Anselmo Figueroa MD [Physician] - (appointment to be arranged) Diet: Carb Consistent or DM2 and Heart Healthy Addtl Attending Provider Instructions: Melissa East is a 61-year-old female who presents to the ER with acute blood loss anemia following skin graft with increased bleeding at the graft site the same day after procedure. She felt presyncopal and therefore came to the ER. Her anemia has been stable here from 9.8-10.8. Hemoglobin 10.1 g/dL on discharge. She did not require any blood transfusions. Please see additional vascular surgery wound care management as below. She should follow-up with vascular surgery in the clinic next week - appointment to be arranged. Recommend she also follows up with her primary care physician given HbA1c of 5.8 as possibly she does not need her glimepiride moving forward. 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 RIGHT THIGH HARVEST SITE: DO NOT REMOVE DRESSING ADJACENT TO SKIN. THIS WILL SLOWLY LOOSEN IT HEALS BENEATH. MAY CHANGE OUTER DRESSING (KERLIX) DAILY. 2. LOWER LATERAL LEG SKIN GRAFT SITE: DO NOT REMOVE OR MANIPULATE BLACK FOAM. CHANGE OUTER DRESSING (KERLIX) DAILY. 3. KEEP RIGHT LOWER LEG DRY. 4. PT HAS FOLLOW UP APPT NEXT WEEK IN OFFICE. Pending Studies at Discharge: No Stand-Alone Forms: [employer], Smoking Cessation Skilled Items Patient informed of condition?: Yes DNR: No Discharge Level of Care: Acute rehab Communicable Disease: No Discharge Prognosis: Stable Lines: None Urinary Catheter: No Medications and DC Order Prescriptions: Continued glimepiride 1 mg Tablet 0.5 mg PO QPM lisinopril 10 mg Tablet 10 mg PO QAM gabapentin 100 mg Capsule 200 mg PO TID albuterol sulfate 90 mcg/actuation Hfa Aerosol Inhaler 2 puff INHALATION 6XD PRN (Reason: Wheezing) betamethasone dipropionate 0.05 % Lotion 1 applic TOPICAL BID PRN (Reason: right hand, right foot rash) Januvia 100 mg Tablet 100 mg PO QAM atorvastatin 40 mg Tablet 40 mg PO HS clopidogrel [Plavix] 75 mg tablet 75 mg PO QAM calcium carbonate [Tums] 300 mg (750 mg) Tablet,Chewable 300 mg PO BID PRN (Reason: Heartburn) aspirin 81 mg Tablet,Chewable 81 mg PO DAILY oxycodone-acetaminophen [Percocet] 5-325 mg tablet 1 tab PO Q6H PRN (Reason: pain) Qty: 30 0RF Discharge Orders: Discharge Order (Routine); Ordered 12/17/21 Ordered By: Andre Ace/Other Patient Handouts: Nutrition for Wound Healing, Managing Type 2 Diabetes Admission Data Admit Date/Time: 12/13/21 23:42 Attending Provider: Andre Veloz Admit Provider: Deejay Maddox Primary Care Provider: Etienne Sharma Other Providers: Shanda Gordon ; Anselmo Figueroa ; [facility] ; [facility], ; [place] Other Interventions: Discharge Summary Assessment (RN) Last Done: 12/17/21 14:40 Coding Level of Care Code D/C DAY MANAGEMENT <30 MINS Diagnoses Post-op bleeding L76.22 Procedure type: non-dermatologic Surgical complication system/body Area: skin Hypertension I10 Hyperlipidemia E78.5 Diabetes mellitus, type 2 E11.9 Peripheral vascular disease I73.9
== END 2021-12-17 17:54 ==
LOC: 3N 14:44 → ED 14:44 → SUATTDRO 21:16 → 3N 22:46 → SUATTDRO 12-13 23:42